=== PATIENT | male | born 1955 | race Caucasian/White ===

== ENCOUNTER 2022-10-19 06:58 | Outpatient (CLI) | payer MEDICARE, OTHER ==
--- NOTE | 2022-10-19 11:36 | Ultrasound Report ---
PROCEDURE: Carotid Doppler Complete INDICATIONS: RETINAL ARTERY OCCLUSION TECHNIQUE: Color and pulse Doppler interrogation was performed of both carotid systems, with image documentation and velocity measurements. COMPARISON: None. FINDINGS: Right side: Brachial blood pressure: 130/61 mm Hg. Common carotid artery peak systolic velocity: 98 cm/sec. Internal carotid artery peak systolic velocity: 198 cm/sec. Internal carotid artery end diastolic velocity: 38 cm/sec. External carotid artery peak systolic velocity: 146 cm/sec. ICA/CCA peak systolic ratio: 2.0 . Argueta scale imaging description: Extensive atherosclerotic plaque. Percent internal carotid artery stenosis: 50-69 percent stenosis. Vertebral artery: Flow direction is antegrade. Left side: Brachial blood pressure: 130/64 mm Hg. Common carotid artery peak systolic velocity: 88 cm/sec. Internal carotid artery peak systolic velocity: 156 cm/sec. Internal carotid artery end diastolic velocity: 44 cm/sec. External carotid artery peak systolic velocity: 166 cm/sec. ICA/CCA peak systolic ratio: 1.8 . Argueta scale imaging description: Extensive atherosclerotic plaque Percent internal carotid artery stenosis: 50-69 percent stenosis. Vertebral artery: Flow direction is antegrade. IMPRESSION: 1. In the right internal carotid artery, there is 50-69 percent stenosis based on peak systolic veloc ity criteria. 2. In the left internal carotid artery, there is 50-69 percent stenosis based on peak systolic veloci ty criteria. 3. Antegrade blood flow within the right vertebral artery. 4. Antegrade blood flow within the left vertebral artery. The estimate of stenosis included in the report of the imaging study was calculated using the [facility]-end orsed standards of carotid artery stenosis. Reviewed by: Carlin Bryant on 10/19/2022 11:35 AM PDT Approved by: Carlin Bryant on 10/19/2022 11:35 AM PDT Station ID: [id number]
== END 2022-10-19 06:59 | disposition home or self-care (01) ==
LOC: DI 06:58
PROVIDERS: ATTEND Student in an Organized Health Care Education/Training Program
DX: H34.9 Unspecified retinal vascular occlusion (principal); I65.23 Occlusion and stenosis of bilateral carotid arteries
CPT/HCPCS: 93880

== ENCOUNTER 2023-11-23 15:55 | Outpatient (CLI) | payer MEDICARE, OTHER | END 2023-11-23 15:56 | disposition EMS.NT | LOC: EMS 15:55 | DX: R55 Syncope and collapse (principal) ==